=== PATIENT | male | born 1940 | race Caucasian/White ===

== ENCOUNTER → 2017-08-27 | Outpatient (CLI) | payer OTHER ==
[~2017-08-27] MED LIST: ASPIR-LOW81 MG PO; CEPHALEXIN500 M1 PO; FIBER TABLETS1 TAB PO; FLUOXETINE20 MG PO; HYDROCODONE BIT1 T11 PO; LISINOPRIL2.5 MG PO; Metformin Hydr500 MG PO; NATURAL FISH1200 MG PO; PRAVACHOL40 MG PO; PROZAC20 MG PO; TENORMIN25 M1 PO; TENORMIN50 MG PO; TERAZOSIN5 MG PO
== END ==
LOC: RAD 14:17
DX: M54.41 Lumbago with sciatica, right side (principal)

== ENCOUNTER → 2018-02-01 | Outpatient (CLI) | payer OTHER ==
[2018-02-01 14:07] LABS: BILIRUBIN NEGATIVE (NEGATIVE); BLOOD 3+ (NEGATIVE); CLARITY CLEAR (CLEAR); COLOR YELLOW (YELLOW); GLUCOSE NEGATIVE (NEGATIVE); KETONE NEGATIVE (NEGATIVE); LEUKO ESTERASE TRACE (NEGATIVE); NITRITE NEGATIVE (NEGATIVE); SPECIFIC GRAVITY <= 1.005 (1.005-1.030); UROBILINOGEN 0.2 E.U./dl (0.2-1.0)
[2018-02-01 14:17] LABS: BACTERIA TRACE
== END | disposition home or self-care (01) ==
LOC: LAB 13:47
PROVIDERS: Internal Medicine
DX: K80.20 Calculus of gallbladder without cholecystitis without obstruction (principal); N17.9 Acute kidney failure, unspecified

== ENCOUNTER → 2018-02-12 | Outpatient (CLI) | payer OTHER | END | disposition home or self-care (01) | LOC: US 07:20 | DX: K76.0 Fatty (change of) liver, not elsewhere classified (principal); K80.10 Calculus of gallbladder with chronic cholecystitis without obstruction ==

== ENCOUNTER → 2018-06-29 | Outpatient (CLI) | payer OTHER | END | disposition home or self-care (01) | LOC: RESCLI 04:21 | DX: E78.2 Mixed hyperlipidemia (principal); E11.9 Type 2 diabetes mellitus without complications; I10 Essential (primary) hypertension; G47.33 Obstructive sleep apnea (adult) (pediatric); F33.41 Major depressive disorder, recurrent, in partial remission; M54.41 Lumbago with sciatica, right side; G89.29 Other chronic pain; N40.0 Benign prostatic hyperplasia without lower urinary tract symptoms; M1A.0610 Idiopathic chronic gout, right knee, without tophus (tophi); E55.9 Vitamin D deficiency, unspecified; Z79.82 Long term (current) use of aspirin; Z79.899 Other long term (current) drug therapy; Z87.891 Personal history of nicotine dependence; Z88.8 Allergy status to other drugs, medicaments and biological substances ==

== ENCOUNTER → 2018-08-17 | Outpatient (CLI) | payer OTHER | END | disposition home or self-care (01) | LOC: RESCLI 11:44 | DX: E11.9 Type 2 diabetes mellitus without complications (principal); E78.2 Mixed hyperlipidemia; I10 Essential (primary) hypertension; E55.9 Vitamin D deficiency, unspecified; M1A.0610 Idiopathic chronic gout, right knee, without tophus (tophi); F33.41 Major depressive disorder, recurrent, in partial remission; N40.0 Benign prostatic hyperplasia without lower urinary tract symptoms; E66.9 Obesity, unspecified; K59.00 Constipation, unspecified; Z79.899 Other long term (current) drug therapy; Z79.82 Long term (current) use of aspirin; Z88.8 Allergy status to other drugs, medicaments and biological substances ==

== ENCOUNTER → 2018-10-13 | Outpatient (CLI) | payer OTHER | END | disposition home or self-care (01) | LOC: RESCLI 01:42 | DX: I10 Essential (primary) hypertension (principal); E11.9 Type 2 diabetes mellitus without complications; E78.2 Mixed hyperlipidemia; M1A.0610 Idiopathic chronic gout, right knee, without tophus (tophi); G47.33 Obstructive sleep apnea (adult) (pediatric); F33.41 Major depressive disorder, recurrent, in partial remission; M54.41 Lumbago with sciatica, right side; G89.29 Other chronic pain; M54.42 Lumbago with sciatica, left side; K80.20 Calculus of gallbladder without cholecystitis without obstruction; N40.0 Benign prostatic hyperplasia without lower urinary tract symptoms; E55.9 Vitamin D deficiency, unspecified; E66.9 Obesity, unspecified; K59.00 Constipation, unspecified; F41.9 Anxiety disorder, unspecified; K21.0 Gastro-esophageal reflux disease with esophagitis; M10.9 Gout, unspecified; Z79.82 Long term (current) use of aspirin; Z79.899 Other long term (current) drug therapy; Z88.8 Allergy status to other drugs, medicaments and biological substances ==

== ENCOUNTER → 2018-12-31 | Outpatient (CLI) | payer OTHER ==
[2018-12-31 15:07] LABS: BILIRUBIN NEGATIVE (NEGATIVE); BLOOD NEGATIVE (NEGATIVE); CLARITY CLEAR (CLEAR); COLOR YELLOW (YELLOW); GLUCOSE NEGATIVE (NEGATIVE); KETONE NEGATIVE (NEGATIVE); LEUKO ESTERASE NEGATIVE (NEGATIVE); NITRITE NEGATIVE (NEGATIVE); PH 7.5 (5.0-9.0); UROBILINOGEN 0.2 E.U./dl (0.2-1.0)
[2018-12-31 15:15] LABS: WBC 0-2 wbc/hpf (0-5)
[2018-12-31 15:19] LABS: BASO % 0.5 % (0.0-1.0); EOS # 0.1 10*3/uL (0.0-0.4); EOS % 2.5 % (1.0-4.0); HEMATOCRIT 43.8 % (42.0-52.0); HEMOGLOBIN 14.5 g/dl (14.0-18.0); LYMPH # 1.2 10*3/uL (1.3-4.4); LYMPH % 28.7 % (27.0-41.0); MEAN CELL VOLUME 90.3 fl (80.0-94.0); MEAN CORPUSCULAR HGB 29.9 pg (27.0-31.0); MEAN CORPUSCULAR HGB CONC 33.1 g/dl (33.0-37.0); MEAN PLATELET VOLUME 10.1 fl (9.6-12.3); MONO # 0.5 10*3/uL (0.1-1.0); MONO % 12.1 % (3.0-9.0); NEUT # 2.3 10*3/uL (2.3-7.9); NEUT % 55.7 % (47.0-73.0); PLATELET COUNT AUTOMATED 165 10*3/uL (130-400); RED BLOOD COUNT 4.85 10*6/uL (4.50-5.90); RED CELL DISTRI WIDTH 13.2 % (0-14.5)
[2018-12-31 15:23] LABS: CREATININE 1.86 mg/dL (0.70-1.30); POTASSIUM 4.8 mmol/L (3.5-5.1)
== END | disposition home or self-care (01) ==
LOC: RESCLI 01:22
PROVIDERS: Internal Medicine
DX: E11.9 Type 2 diabetes mellitus without complications (principal); I10 Essential (primary) hypertension; E78.2 Mixed hyperlipidemia; F33.41 Major depressive disorder, recurrent, in partial remission; N40.0 Benign prostatic hyperplasia without lower urinary tract symptoms; E55.9 Vitamin D deficiency, unspecified; K59.00 Constipation, unspecified; M10.9 Gout, unspecified; K21.0 Gastro-esophageal reflux disease with esophagitis; F41.9 Anxiety disorder, unspecified; Z79.899 Other long term (current) drug therapy; Z88.8 Allergy status to other drugs, medicaments and biological substances

== ENCOUNTER → 2019-04-19 | Outpatient (CLI) | payer OTHER | END | disposition home or self-care (01) | LOC: RESCLI 01:54 | DX: J98.8 Other specified respiratory disorders (principal); E66.9 Obesity, unspecified; I10 Essential (primary) hypertension; F41.9 Anxiety disorder, unspecified; E11.9 Type 2 diabetes mellitus without complications; E78.2 Mixed hyperlipidemia; F33.41 Major depressive disorder, recurrent, in partial remission; N40.0 Benign prostatic hyperplasia without lower urinary tract symptoms; E55.9 Vitamin D deficiency, unspecified; K59.00 Constipation, unspecified; M10.9 Gout, unspecified; Z79.899 Other long term (current) drug therapy ==

== ENCOUNTER → 2019-04-26 | Outpatient (CLI) | payer OTHER | END | disposition home or self-care (01) | LOC: RESCLI 01:48 | DX: I10 Essential (primary) hypertension (principal); F41.9 Anxiety disorder, unspecified; E11.9 Type 2 diabetes mellitus without complications; E78.2 Mixed hyperlipidemia; F33.41 Major depressive disorder, recurrent, in partial remission; N40.0 Benign prostatic hyperplasia without lower urinary tract symptoms; E55.9 Vitamin D deficiency, unspecified; K59.00 Constipation, unspecified; M10.9 Gout, unspecified; R05 Cough; Z79.899 Other long term (current) drug therapy; Z88.8 Allergy status to other drugs, medicaments and biological substances ==

== ENCOUNTER → 2019-05-12 | Outpatient (CLI) | payer OTHER ==
[2019-05-12 14:12] LABS: BASO % 0.2 % (0.0-1.0); EOS # 0.1 10*3/uL (0.0-0.4); EOS % 2.4 % (1.0-4.0); HEMATOCRIT 45.5 % (42.0-52.0); HEMOGLOBIN 14.8 g/dl (14.0-18.0); LYMPH % 20.6 % (27.0-41.0); MEAN CELL VOLUME 90.3 fl (80.0-94.0); MEAN CORPUSCULAR HGB 29.4 pg (27.0-31.0); MEAN CORPUSCULAR HGB CONC 32.5 g/dl (33.0-37.0); MEAN PLATELET VOLUME 10.4 fl (9.6-12.3); MONO # 0.5 10*3/uL (0.1-1.0); MONO % 10.2 % (3.0-9.0); NEUT # 3.3 10*3/uL (2.3-7.9); NEUT % 66.2 % (47.0-73.0); PLATELET COUNT AUTOMATED 164 10*3/uL (130-400); RED BLOOD COUNT 5.04 10*6/uL (4.50-5.90); RED CELL DISTRI WIDTH 12.8 % (0-14.5)
[2019-05-12 14:25] LABS: CREATININE 1.72 mg/dL (0.70-1.30)
== END | disposition home or self-care (01) ==
LOC: LAB 13:07
PROVIDERS: Internal Medicine
DX: E11.9 Type 2 diabetes mellitus without complications (principal); R05 Cough

== ENCOUNTER → 2019-05-20 | Outpatient (CLI) | payer OTHER ==
[2019-05-21 09:08] LABS: CREATININE,URINE 118.2 mg/dL (Not Estab.); MICROALBUMIN/CRT RATIO 5.2 (0.0-30.0)
[2019-05-23 11:08] LABS: MICROALBUMIN EXCRETION RATE 6.1 ug/min (0.0-20.0)
== END | disposition home or self-care (01) ==
LOC: LAB 14:19
PROVIDERS: Internal Medicine
DX: E11.9 Type 2 diabetes mellitus without complications (principal); R05 Cough

== ENCOUNTER → 2019-08-09 | Outpatient (CLI) | payer OTHER ==
[2019-08-09 15:02] LABS: CREATININE 1.99 mg/dL (0.70-1.30); POTASSIUM 5.2 mmol/L (3.5-5.1)
== END | disposition home or self-care (01) ==
LOC: RESCLI 00:48
PROVIDERS: Family Medicine
DX: B97.89 Other viral agents as the cause of diseases classified elsewhere (principal); F41.9 Anxiety disorder, unspecified; I10 Essential (primary) hypertension; E11.9 Type 2 diabetes mellitus without complications; E78.2 Mixed hyperlipidemia; F33.41 Major depressive disorder, recurrent, in partial remission; N40.0 Benign prostatic hyperplasia without lower urinary tract symptoms; E55.9 Vitamin D deficiency, unspecified; K59.00 Constipation, unspecified; M10.9 Gout, unspecified; Z79.899 Other long term (current) drug therapy

== ENCOUNTER → 2019-09-15 | Outpatient (CLI) | payer OTHER ==
[2019-09-15 16:05] LABS: BASO % 0.5 % (0.0-1.0); EOS # 0.1 10*3/uL (0.0-0.4); EOS % 1.8 % (1.0-4.0); HEMATOCRIT 47.4 % (42.0-52.0); HEMOGLOBIN 15.3 g/dl (14.0-18.0); LYMPH # 1.1 10*3/uL (1.3-4.4); LYMPH % 19.2 % (27.0-41.0); MEAN CELL VOLUME 91.7 fl (80.0-94.0); MEAN CORPUSCULAR HGB 29.6 pg (27.0-31.0); MEAN CORPUSCULAR HGB CONC 32.3 g/dl (33.0-37.0); MEAN PLATELET VOLUME 10.1 fl (9.6-12.3); MONO # 0.6 10*3/uL (0.1-1.0); MONO % 10.7 % (3.0-9.0); NEUT # 3.8 10*3/uL (2.3-7.9); NEUT % 67.6 % (47.0-73.0); PLATELET COUNT AUTOMATED 186 10*3/uL (130-400); RED BLOOD COUNT 5.17 10*6/uL (4.50-5.90); RED CELL DISTRI WIDTH 13.2 % (0-14.5); WHITE BLOOD COUNT 5.6 10*3/uL (4.8-10.8)
[2019-09-15 16:16] LABS: CREATININE 1.68 mg/dL (0.70-1.30); POTASSIUM 4.4 mmol/L (3.5-5.1)
== END | disposition home or self-care (01) ==
LOC: RESCLI 00:36
PROVIDERS: Internal Medicine
DX: B97.89 Other viral agents as the cause of diseases classified elsewhere (principal); I10 Essential (primary) hypertension; E11.9 Type 2 diabetes mellitus without complications; E78.2 Mixed hyperlipidemia; F33.41 Major depressive disorder, recurrent, in partial remission; N40.0 Benign prostatic hyperplasia without lower urinary tract symptoms; E55.9 Vitamin D deficiency, unspecified; K59.00 Constipation, unspecified; M10.9 Gout, unspecified; Z79.899 Other long term (current) drug therapy

== ENCOUNTER → 2020-03-30 | Outpatient (CLI) | payer OTHER | END | disposition home or self-care (01) | LOC: RESCLI 00:47 | PROVIDERS: ATTEND Internal Medicine | DX: E11.22 Type 2 diabetes mellitus with diabetic chronic kidney disease (principal); I12.9 Hypertensive chronic kidney disease with stage 1 through stage 4 chronic kidney disease, or unspecified chronic kidney disease; N18.3 Chronic kidney disease, stage 3 (moderate); F33.41 Major depressive disorder, recurrent, in partial remission; E55.9 Vitamin D deficiency, unspecified; E78.2 Mixed hyperlipidemia; K59.00 Constipation, unspecified; M10.9 Gout, unspecified; N40.0 Benign prostatic hyperplasia without lower urinary tract symptoms; Z79.82 Long term (current) use of aspirin; Z79.899 Other long term (current) drug therapy ==

== ENCOUNTER → 2020-04-17 | Outpatient (CLI) | payer OTHER ==
[2020-04-17 10:55] LABS: BASO % 0.5 % (0.0-1.0); EOS # 0.1 10*3/uL (0.0-0.4); EOS % 2.4 % (1.0-4.0); HEMATOCRIT 44.7 % (42.0-52.0); LYMPH % 16.9 % (27.0-41.0); MEAN CORPUSCULAR HGB 29.3 pg (27.0-31.0); MEAN CORPUSCULAR HGB CONC 32.9 g/dl (33.0-37.0); MEAN PLATELET VOLUME 9.3 fl (9.6-12.3); MONO # 0.7 10*3/uL (0.1-1.0); MONO % 11.3 % (3.0-9.0); NEUT # 4.1 10*3/uL (2.3-7.9); NEUT % 68.4 % (47.0-73.0); PLATELET COUNT AUTOMATED 190 10*3/uL (130-400); RED BLOOD COUNT 5.02 10*6/uL (4.50-5.90); RED CELL DISTRI WIDTH 12.5 % (0-14.5); WHITE BLOOD COUNT 5.9 10*3/uL (4.8-10.8)
[2020-04-17 11:24] LABS: ALBUMIN 3.8 gm/dl (3.1-4.5); CREATININE 1.67 mg/dL (0.70-1.30); POTASSIUM 4.5 mmol/L (3.5-5.1); TOTAL PROTEIN 7.5 gm/dL (6.4-8.2)
[2020-04-18 09:07] LABS: CREATININE,URINE 125.1 mg/dL (Not Estab.)
== END | disposition home or self-care (01) ==
LOC: LAB 10:23
PROVIDERS: Internal Medicine; ATTEND Family Medicine
DX: E11.9 Type 2 diabetes mellitus without complications (principal); I10 Essential (primary) hypertension; N18.3 Chronic kidney disease, stage 3 (moderate); E78.2 Mixed hyperlipidemia

== ENCOUNTER → 2021-01-04 | Outpatient (CLI) | payer OTHER | END | disposition home or self-care (01) | LOC: RESCLI 01:04 | PROVIDERS: ATTEND Internal Medicine | DX: E11.22 Type 2 diabetes mellitus with diabetic chronic kidney disease (principal); I12.9 Hypertensive chronic kidney disease with stage 1 through stage 4 chronic kidney disease, or unspecified chronic kidney disease; N18.30 Chronic kidney disease, stage 3 unspecified; E78.2 Mixed hyperlipidemia; E55.9 Vitamin D deficiency, unspecified; M10.9 Gout, unspecified; N40.0 Benign prostatic hyperplasia without lower urinary tract symptoms; F41.9 Anxiety disorder, unspecified; G47.33 Obstructive sleep apnea (adult) (pediatric); K21.9 Gastro-esophageal reflux disease without esophagitis; Z79.82 Long term (current) use of aspirin; Z79.899 Other long term (current) drug therapy ==

== ENCOUNTER → 2021-01-10 | Outpatient (CLI) | payer OTHER ==
[2021-01-10 10:22] LABS: BASO % 0.4 % (0.0-1.0); EOS # 0.2 10*3/uL (0.0-0.4); EOS % 3.3 % (1.0-4.0); HEMATOCRIT 45.2 % (42.0-52.0); LYMPH # 1.1 10*3/uL (1.3-4.4); LYMPH % 20.9 % (27.0-41.0); MEAN CELL VOLUME 92.2 fl (80.0-94.0); MEAN CORPUSCULAR HGB CONC 32.5 g/dl (33.0-37.0); MEAN PLATELET VOLUME 9.7 fl (9.6-12.3); MONO # 0.6 10*3/uL (0.1-1.0); MONO % 10.5 % (3.0-9.0); NEUT # 3.5 10*3/uL (2.3-7.9); NEUT % 64.5 % (47.0-73.0); PLATELET COUNT AUTOMATED 180 10*3/uL (130-400); RED CELL DISTRI WIDTH 12.8 % (0-14.5); WHITE BLOOD COUNT 5.4 10*3/uL (4.8-10.8)
[2021-01-10 10:45] LABS: ALBUMIN 3.6 gm/dl (3.1-4.5); CREATININE 1.79 mg/dL (0.70-1.30); POTASSIUM 4.2 mmol/L (3.5-5.1); TOTAL PROTEIN 7.3 gm/dL (6.4-8.2)
[2021-01-10 10:50] LABS: FREE T4 0.92 ng/dl (0.76-1.46); THYROID STIM HORMONE (HS) 2.48 uIU/ml (0.358-4.75)
[2021-01-11 10:07] LABS: CREATININE,URINE 240.3 mg/dL (Not Estab.)
== END | disposition home or self-care (01) ==
LOC: LAB 09:55
PROVIDERS: Internal Medicine; ATTEND Internal Medicine
DX: E11.9 Type 2 diabetes mellitus without complications (principal); E78.2 Mixed hyperlipidemia; E55.9 Vitamin D deficiency, unspecified

== ENCOUNTER → 2021-02-01 | Outpatient (CLI) | payer OTHER | END | disposition home or self-care (01) | LOC: US 10:27 | PROVIDERS: ATTEND Internal Medicine Nephrology | DX: N18.32 Chronic kidney disease, stage 3b (principal); N28.1 Cyst of kidney, acquired; N28.89 Other specified disorders of kidney and ureter ==

== ENCOUNTER → 2021-05-22 | Outpatient (CLI) | payer OTHER | END | disposition home or self-care (01) | LOC: RESCLI 00:49 | PROVIDERS: ATTEND Internal Medicine Nephrology | DX: Z23 Encounter for immunization (principal); I12.9 Hypertensive chronic kidney disease with stage 1 through stage 4 chronic kidney disease, or unspecified chronic kidney disease; E11.22 Type 2 diabetes mellitus with diabetic chronic kidney disease; N18.30 Chronic kidney disease, stage 3 unspecified; E78.2 Mixed hyperlipidemia; M10.9 Gout, unspecified; E55.9 Vitamin D deficiency, unspecified; N40.0 Benign prostatic hyperplasia without lower urinary tract symptoms; J30.2 Other seasonal allergic rhinitis; F32.5 Major depressive disorder, single episode, in full remission; Z78.9 Other specified health status; Z79.82 Long term (current) use of aspirin; Z79.899 Other long term (current) drug therapy ==

== ENCOUNTER → 2021-06-12 | Outpatient (CLI) | payer OTHER | END | disposition home or self-care (01) | LOC: RESCLI 00:47 | PROVIDERS: ATTEND Internal Medicine Nephrology | DX: I12.9 Hypertensive chronic kidney disease with stage 1 through stage 4 chronic kidney disease, or unspecified chronic kidney disease (principal); N18.30 Chronic kidney disease, stage 3 unspecified; E78.2 Mixed hyperlipidemia; Z23 Encounter for immunization; M10.9 Gout, unspecified; N40.0 Benign prostatic hyperplasia without lower urinary tract symptoms; E55.9 Vitamin D deficiency, unspecified; J30.2 Other seasonal allergic rhinitis; F32.5 Major depressive disorder, single episode, in full remission; Z78.9 Other specified health status; Z79.82 Long term (current) use of aspirin; Z79.899 Other long term (current) drug therapy ==

== ENCOUNTER → 2021-08-07 | Outpatient (CLI) | payer OTHER | END | disposition home or self-care (01) | LOC: RESCLI 00:32 | PROVIDERS: ATTEND Internal Medicine | DX: I12.9 Hypertensive chronic kidney disease with stage 1 through stage 4 chronic kidney disease, or unspecified chronic kidney disease (principal); N18.30 Chronic kidney disease, stage 3 unspecified; E78.2 Mixed hyperlipidemia; M10.9 Gout, unspecified; E55.9 Vitamin D deficiency, unspecified; N40.0 Benign prostatic hyperplasia without lower urinary tract symptoms; J30.2 Other seasonal allergic rhinitis; K21.9 Gastro-esophageal reflux disease without esophagitis; F32.5 Major depressive disorder, single episode, in full remission; Z78.9 Other specified health status; Z79.82 Long term (current) use of aspirin; Z79.899 Other long term (current) drug therapy; Z98.890 Other specified postprocedural states ==

== ENCOUNTER → 2021-08-28 | Outpatient (CLI) | payer OTHER ==
[2021-08-28 10:47] LABS: BASO % 0.6 % (0.0-1.0); EOS # 0.1 10*3/uL (0.0-0.4); EOS % 1.9 % (1.0-4.0); HEMATOCRIT 44.2 % (42.0-52.0); LYMPH # 1.2 10*3/uL (1.3-4.4); LYMPH % 17.2 % (27.0-41.0); MEAN CELL VOLUME 89.7 fl (80.0-94.0); MEAN CORPUSCULAR HGB 29.6 pg (27.0-31.0); MEAN PLATELET VOLUME 9.8 fl (9.6-12.3); MONO # 0.8 10*3/uL (0.1-1.0); MONO % 11.3 % (3.0-9.0); NEUT # 4.6 10*3/uL (2.3-7.9); NEUT % 68.7 % (47.0-73.0); PLATELET COUNT AUTOMATED 193 10*3/uL (130-400); RED BLOOD COUNT 4.93 10*6/uL (4.50-5.90); RED CELL DISTRI WIDTH 12.8 % (0-14.5); WHITE BLOOD COUNT 6.7 10*3/uL (4.8-10.8)
[2021-08-28 11:06] LABS: ALBUMIN 3.9 gm/dl (3.1-4.5); CREATININE 1.9 mg/dL (0.70-1.30); POTASSIUM 4.4 mmol/L (3.5-5.1)
[2021-08-28 11:08] LABS: TOTAL PROTEIN 7.5 gm/dL (6.4-8.2)
== END | disposition home or self-care (01) ==
LOC: RESCLI 06:46
PROVIDERS: Internal Medicine; ATTEND Internal Medicine
DX: K11.20 Sialoadenitis, unspecified (principal); I10 Essential (primary) hypertension; E11.9 Type 2 diabetes mellitus without complications; E55.9 Vitamin D deficiency, unspecified; E78.2 Mixed hyperlipidemia; M10.9 Gout, unspecified; N40.0 Benign prostatic hyperplasia without lower urinary tract symptoms; J30.2 Other seasonal allergic rhinitis; F32.5 Major depressive disorder, single episode, in full remission; Z79.899 Other long term (current) drug therapy

== ENCOUNTER 2021-10-24 10:34 | Emergency (ER) | payer OTHER ==
[~2021-10-24] VITALS: Ht 170.1 cm; Wt 88.5 kg
[2021-10-24 10:57] VITALS: BP 116/61
[2021-10-24 11:35] LABS: BASO % 0.3 % (0.0-1.0); EOS % 0.4 % (1.0-4.0); HEMATOCRIT 44.3 % (42.0-52.0); LYMPH # 0.5 10*3/uL (1.3-4.4); LYMPH % 5.9 % (27.0-41.0); MEAN CELL VOLUME 88.4 fl (80.0-94.0); MEAN CORPUSCULAR HGB 29.7 pg (27.0-31.0); MEAN CORPUSCULAR HGB CONC 33.6 g/dl (33.0-37.0); MEAN PLATELET VOLUME 9.8 fl (9.6-12.3); MONO # 0.8 10*3/uL (0.1-1.0); MONO % 9.4 % (3.0-9.0); NEUT # 6.6 10*3/uL (2.3-7.9); NEUT % 83.5 % (47.0-73.0); PLATELET COUNT AUTOMATED 190 10*3/uL (130-400); RED BLOOD COUNT 5.01 10*6/uL (4.50-5.90); RED CELL DISTRI WIDTH 13.1 % (0-14.5)
[2021-10-24 11:53] LABS: CREATININE 2.02 mg/dL (0.70-1.30); POTASSIUM 4.5 mmol/L (3.5-5.1); TOTAL PROTEIN 7.5 gm/dL (6.4-8.2)
[2021-10-24] MEDS ORDERED: VIBRA-TAB100 MG PO (13:33)
== END 2021-10-24 13:37 | disposition home or self-care (01) ==
LOC: ED 10:34
PROVIDERS: Emergency Medicine
DX: R11.2 Nausea with vomiting, unspecified (principal); Z20.822 Contact with and (suspected) exposure to COVID-19; R50.9 Fever, unspecified; Z79.899 Other long term (current) drug therapy; Z98.890 Other specified postprocedural states

== ENCOUNTER → 2021-12-11 | Outpatient (CLI) | payer OTHER ==
[~2021-12-11] MED LIST changes: +VIBRA-TAB100 MG PO
[2021-12-11 16:44] LABS: CREATININE 1.73 mg/dL (0.70-1.30); POTASSIUM 4.7 mmol/L (3.5-5.1)
== END | disposition home or self-care (01) ==
LOC: RESCLI 00:36
PROVIDERS: Hospitalist; ATTEND Internal Medicine Nephrology
DX: N18.30 Chronic kidney disease, stage 3 unspecified (principal)

== ENCOUNTER → 2022-01-01 | Outpatient (CLI) | payer OTHER ==
[~2022-01-01] MED LIST changes: +ALLOPURINOL100 MG PO; +B12 ACTIVE1000 MCG PO; +CENTURY ULTIMA1 EAC3 PO; +CYCLOBENZAPRINE10 MG PO; +FENOFIBRATE145 M1 PO; +FISH OIL 1,0001 EAC5 PO; +LIPITOR10 MG PO; +LOSARTAN POTASS50 M1 PO; +PROZAC40 M1 PO
== END | disposition home or self-care (01) ==
LOC: RESCLI 14:25
PROVIDERS: ATTEND Internal Medicine Nephrology
DX: M54.89 Other dorsalgia (principal); B35.0 Tinea barbae and tinea capitis; I10 Essential (primary) hypertension; E78.2 Mixed hyperlipidemia; M50.30 Other cervical disc degeneration, unspecified cervical region; G47.33 Obstructive sleep apnea (adult) (pediatric); M1A.9XX0 Chronic gout, unspecified, without tophus (tophi); E55.9 Vitamin D deficiency, unspecified; F41.9 Anxiety disorder, unspecified; J30.2 Other seasonal allergic rhinitis; Z79.899 Other long term (current) drug therapy; Z79.82 Long term (current) use of aspirin

== ENCOUNTER → 2022-01-10 | Outpatient (CLI) | payer OTHER | END | disposition home or self-care (01) | LOC: CARD 01:36 | PROVIDERS: ATTEND Student in an Organized Health Care Education/Training Program | DX: R06.00 Dyspnea, unspecified (principal); R06.02 Shortness of breath ==

== ENCOUNTER → 2022-01-16 | Outpatient (CLI) | payer OTHER | END | disposition home or self-care (01) | LOC: CARD 08:43 | PROVIDERS: ATTEND Student in an Organized Health Care Education/Training Program | DX: I08.2 Rheumatic disorders of both aortic and tricuspid valves (principal) ==

== ENCOUNTER → 2022-01-22 | Outpatient (CLI) | payer OTHER | END | disposition home or self-care (01) | LOC: RESCLI 02:29 | PROVIDERS: ATTEND Internal Medicine Nephrology | DX: I13.0 Hypertensive heart and chronic kidney disease with heart failure and stage 1 through stage 4 chronic kidney disease, or unspecified chronic kidney disease (principal); N18.30 Chronic kidney disease, stage 3 unspecified; I50.32 Chronic diastolic (congestive) heart failure; J30.2 Other seasonal allergic rhinitis; B35.0 Tinea barbae and tinea capitis; E78.2 Mixed hyperlipidemia; F41.9 Anxiety disorder, unspecified; G47.33 Obstructive sleep apnea (adult) (pediatric); E11.22 Type 2 diabetes mellitus with diabetic chronic kidney disease; K57.90 Diverticulosis of intestine, part unspecified, without perforation or abscess without bleeding; M1A.9XX0 Chronic gout, unspecified, without tophus (tophi); E55.9 Vitamin D deficiency, unspecified; Z79.899 Other long term (current) drug therapy; Z79.82 Long term (current) use of aspirin ==

== ENCOUNTER → 2022-02-12 | Outpatient (CLI) | payer OTHER | END | disposition home or self-care (01) | LOC: RESCLI 03:00 | PROVIDERS: ATTEND Internal Medicine | DX: M25.511 Pain in right shoulder (principal); I12.9 Hypertensive chronic kidney disease with stage 1 through stage 4 chronic kidney disease, or unspecified chronic kidney disease; E78.2 Mixed hyperlipidemia; M1A.9XX0 Chronic gout, unspecified, without tophus (tophi); N18.30 Chronic kidney disease, stage 3 unspecified; E11.22 Type 2 diabetes mellitus with diabetic chronic kidney disease; E55.9 Vitamin D deficiency, unspecified; N40.0 Benign prostatic hyperplasia without lower urinary tract symptoms; J30.2 Other seasonal allergic rhinitis; F41.9 Anxiety disorder, unspecified; B35.4 Tinea corporis; K21.9 Gastro-esophageal reflux disease without esophagitis; Z79.899 Other long term (current) drug therapy; Z79.82 Long term (current) use of aspirin ==

== ENCOUNTER → 2022-03-19 | Outpatient (CLI) | payer OTHER | END | disposition home or self-care (01) | LOC: RAD 02:14 → RESCLI 02:14 | PROVIDERS: ATTEND Internal Medicine | DX: M47.816 Spondylosis without myelopathy or radiculopathy, lumbar region (principal); J30.2 Other seasonal allergic rhinitis; M1A.9XX0 Chronic gout, unspecified, without tophus (tophi); E55.9 Vitamin D deficiency, unspecified; B35.4 Tinea corporis; I10 Essential (primary) hypertension; M48.061 Spinal stenosis, lumbar region without neurogenic claudication; E78.2 Mixed hyperlipidemia; M25.78 Osteophyte, vertebrae; I70.0 Atherosclerosis of aorta; F41.9 Anxiety disorder, unspecified; N40.0 Benign prostatic hyperplasia without lower urinary tract symptoms; Z79.899 Other long term (current) drug therapy; Z79.82 Long term (current) use of aspirin ==

== ENCOUNTER → 2022-03-24 | Outpatient (CLI) | payer OTHER | END | disposition home or self-care (01) | LOC: RESCLI 14:54 | PROVIDERS: ATTEND Internal Medicine | DX: M1A.9XX0 Chronic gout, unspecified, without tophus (tophi) (principal); N40.0 Benign prostatic hyperplasia without lower urinary tract symptoms; E55.9 Vitamin D deficiency, unspecified; I10 Essential (primary) hypertension; E78.2 Mixed hyperlipidemia; J30.2 Other seasonal allergic rhinitis; M54.50 Low back pain, unspecified; Z79.899 Other long term (current) drug therapy; Z79.82 Long term (current) use of aspirin ==

== ENCOUNTER 2022-04-13 14:43 | Emergency (ER) | payer OTHER ==
[~2022-04-13] VITALS: Ht 170.1 cm; Wt 88.5 kg
[2022-04-13 14:45] VITALS: BP 143/84
== END 2022-04-13 15:38 | disposition home or self-care (01) ==
LOC: ED 14:43
DX: S81.811A Laceration without foreign body, right lower leg, initial encounter (principal); Z79.899 Other long term (current) drug therapy; Z79.82 Long term (current) use of aspirin; X99.8XXA Assault by other sharp object, initial encounter; Y93.89 Activity, other specified; Y92.89 Other specified places as the place of occurrence of the external cause; Y99.8 Other external cause status

== ENCOUNTER → 2022-04-24 | Outpatient (CLI) | payer OTHER | END | disposition home or self-care (01) | LOC: RESCLI 11:13 | PROVIDERS: ATTEND Internal Medicine | DX: Z48.89 Encounter for other specified surgical aftercare (principal); Z23 Encounter for immunization; E11.22 Type 2 diabetes mellitus with diabetic chronic kidney disease; N18.30 Chronic kidney disease, stage 3 unspecified; E55.9 Vitamin D deficiency, unspecified; F41.9 Anxiety disorder, unspecified; G47.33 Obstructive sleep apnea (adult) (pediatric); I12.9 Hypertensive chronic kidney disease with stage 1 through stage 4 chronic kidney disease, or unspecified chronic kidney disease; Z98.890 Other specified postprocedural states; Z79.899 Other long term (current) drug therapy; Z79.82 Long term (current) use of aspirin ==

== ENCOUNTER → 2022-07-07 | Outpatient (CLI) | payer OTHER | END | disposition home or self-care (01) | LOC: RESCLI 01:54 | PROVIDERS: ATTEND Internal Medicine | DX: I12.9 Hypertensive chronic kidney disease with stage 1 through stage 4 chronic kidney disease, or unspecified chronic kidney disease (principal); E11.22 Type 2 diabetes mellitus with diabetic chronic kidney disease; N18.30 Chronic kidney disease, stage 3 unspecified; E78.2 Mixed hyperlipidemia; E55.9 Vitamin D deficiency, unspecified; K21.9 Gastro-esophageal reflux disease without esophagitis; G47.33 Obstructive sleep apnea (adult) (pediatric); Z79.82 Long term (current) use of aspirin; Z79.899 Other long term (current) drug therapy ==

== ENCOUNTER → 2022-07-14 | Outpatient (CLI) | payer OTHER ==
[2022-07-14 09:24] LABS: BASO % 0.5 % (0.0-1.0); EOS # 0.2 10*3/uL (0.0-0.4); EOS % 4.2 % (1.0-4.0); HEMATOCRIT 44.6 % (42.0-52.0); LYMPH # 0.9 10*3/uL (1.3-4.4); LYMPH % 16.9 % (27.0-41.0); MEAN CORPUSCULAR HGB 30.4 pg (27.0-31.0); MEAN CORPUSCULAR HGB CONC 34.5 g/dl (33.0-37.0); MEAN PLATELET VOLUME 9.7 fl (9.6-12.3); MONO # 0.7 10*3/uL (0.1-1.0); MONO % 12.3 % (3.0-9.0); NEUT # 3.6 10*3/uL (2.3-7.9); NEUT % 65.7 % (47.0-73.0); PLATELET COUNT AUTOMATED 174 10*3/uL (130-400); RED BLOOD COUNT 5.07 10*6/uL (4.50-5.90); RED CELL DISTRI WIDTH 12.9 % (0-14.5); WHITE BLOOD COUNT 5.5 10*3/uL (4.8-10.8)
[2022-07-14 09:58] LABS: CREATININE 1.55 mg/dL (0.70-1.30); POTASSIUM 4.1 mmol/L (3.4-5.1); TOTAL PROTEIN 6.8 gm/dL (6.0-8.0); URIC ACID 7.4 mg/dL (3.1-9.2)
== END | disposition home or self-care (01) ==
LOC: LAB 08:48
PROVIDERS: ATTEND Student in an Organized Health Care Education/Training Program
DX: E11.9 Type 2 diabetes mellitus without complications (principal); E78.2 Mixed hyperlipidemia; M1A.9XX0 Chronic gout, unspecified, without tophus (tophi)

== ENCOUNTER 2022-09-30 00:36 | Emergency (ER) | payer MEDICARE ==
[~2022-09-30] VITALS: Ht 172.7 cm; Wt 102.1 kg
[2022-09-30 00:37] VITALS: BP 141/72
== END 2022-09-30 02:11 | disposition home or self-care (01) ==
LOC: ED 00:36
DX: S76.011A Strain of muscle, fascia and tendon of right hip, initial encounter (principal); S09.90XA Unspecified injury of head, initial encounter; Z98.890 Other specified postprocedural states; W01.198A Fall on same level from slipping, tripping and stumbling with subsequent striking against other object, initial encounter; Y93.89 Activity, other specified; Y92.009 Unspecified place in unspecified non-institutional (private) residence as the place of occurrence of the external cause; Y99.8 Other external cause status

== ENCOUNTER → 2023-03-17 | Outpatient (CLI) | payer MEDICARE ==
[2023-03-17 11:55] LABS: BASO % 0.4 % (0.0-1.0); EOS # 0.2 10*3/uL (0.0-0.4); EOS % 3.2 % (1.0-4.0); HEMATOCRIT 44.6 % (42.0-52.0); LYMPH # 1.1 10*3/uL (1.3-4.4); LYMPH % 21.1 % (27.0-41.0); MEAN CELL VOLUME 88.1 fl (80.0-94.0); MEAN CORPUSCULAR HGB 29.4 pg (27.0-31.0); MEAN CORPUSCULAR HGB CONC 33.4 g/dl (33.0-37.0); MEAN PLATELET VOLUME 9.4 fl (9.6-12.3); MONO # 0.7 10*3/uL (0.1-1.0); MONO % 12.4 % (3.0-9.0); NEUT # 3.3 10*3/uL (2.3-7.9); NEUT % 62.5 % (47.0-73.0); PLATELET COUNT AUTOMATED 193 10*3/uL (130-400); RED BLOOD COUNT 5.06 10*6/uL (4.50-5.90); RED CELL DISTRI WIDTH 13.9 % (0-14.5); WHITE BLOOD COUNT 5.3 10*3/uL (4.8-10.8)
[2023-03-17 12:17] LABS: POTASSIUM 4.2 mmol/L (3.4-5.1); TOTAL PROTEIN 7.1 gm/dL (6.0-8.0)
== END | disposition home or self-care (01) ==
LOC: RESCLI 09:16
PROVIDERS: Student in an Organized Health Care Education/Training Program; ATTEND Student in an Organized Health Care Education/Training Program
DX: R25.2 Cramp and spasm (principal); I10 Essential (primary) hypertension; E11.9 Type 2 diabetes mellitus without complications; E78.5 Hyperlipidemia, unspecified; R06.09 Other forms of dyspnea; Z79.899 Other long term (current) drug therapy

== ENCOUNTER → 2023-04-10 | Outpatient (CLI) | payer MEDICARE | END | disposition home or self-care (01) | LOC: CARD 00:08 | PROVIDERS: ATTEND Internal Medicine | DX: R06.09 Other forms of dyspnea (principal); R53.81 Other malaise; R06.02 Shortness of breath ==

== ENCOUNTER → 2023-05-19 | Outpatient (CLI) | payer MEDICARE | END | disposition home or self-care (01) | LOC: RESCLI 01:19 | PROVIDERS: ATTEND Internal Medicine | DX: M19.011 Primary osteoarthritis, right shoulder (principal); M25.511 Pain in right shoulder ==

== ENCOUNTER → 2023-11-17 | Outpatient (CLI) | payer MEDICARE ==
[2023-11-17 13:00] LABS: BASO % 0.4 % (0.0-1.0); EOS # 0.2 10*3/uL (0.0-0.4); HEMATOCRIT 47.3 % (42.0-52.0); LYMPH # 1.4 10*3/uL (1.3-4.4); LYMPH % 20.3 % (27.0-41.0); MEAN CELL VOLUME 89.8 fl (80.0-94.0); MEAN CORPUSCULAR HGB CONC 33.4 g/dl (33.0-37.0); MEAN PLATELET VOLUME 9.1 fl (9.6-12.3); MONO # 0.7 10*3/uL (0.1-1.0); MONO % 10.1 % (3.0-9.0); NEUT # 4.4 10*3/uL (2.3-7.9); NEUT % 65.8 % (47.0-73.0); PLATELET COUNT AUTOMATED 186 10*3/uL (130-400); RED BLOOD COUNT 5.27 10*6/uL (4.50-5.90); RED CELL DISTRI WIDTH 13.1 % (0-14.5); WHITE BLOOD COUNT 6.8 10*3/uL (4.8-10.8)
[2023-11-17 13:29] LABS: TOTAL PROTEIN 7.3 gm/dL (6.0-8.0); VITAMIN D, 25-HYDROXY 61.4 ng/mL (30-100)
== END | disposition home or self-care (01) ==
LOC: RESCLI 03:01
PROVIDERS: Student in an Organized Health Care Education/Training Program; ATTEND Family Medicine
DX: I10 Essential (primary) hypertension (principal); R53.83 Other fatigue; K59.00 Constipation, unspecified; J30.2 Other seasonal allergic rhinitis; G89.29 Other chronic pain; N40.0 Benign prostatic hyperplasia without lower urinary tract symptoms; E78.2 Mixed hyperlipidemia; E55.9 Vitamin D deficiency, unspecified; M1A.9XX0 Chronic gout, unspecified, without tophus (tophi); M79.10 Myalgia, unspecified site; F41.9 Anxiety disorder, unspecified; Z98.890 Other specified postprocedural states; Z79.899 Other long term (current) drug therapy

== ENCOUNTER → 2024-01-05 | Outpatient (CLI) | payer MEDICARE | END | disposition home or self-care (01) | LOC: RESCLI 00:56 | PROVIDERS: ATTEND Internal Medicine | DX: F41.9 Anxiety disorder, unspecified (principal); Z79.899 Other long term (current) drug therapy; Z88.8 Allergy status to other drugs, medicaments and biological substances; Z98.890 Other specified postprocedural states ==

== ENCOUNTER → 2024-01-22 | Outpatient (CLI) | payer MEDICARE | END | disposition home or self-care (01) | LOC: RAD 15:20 | PROVIDERS: ATTEND Internal Medicine | DX: J98.11 Atelectasis (principal); R09.89 Other specified symptoms and signs involving the circulatory and respiratory systems ==

== ENCOUNTER → 2024-04-27 | Day surgery (SDC) | payer MEDICARE ==
[~2024-04-27] VITALS: Ht 170.1 cm; Wt 86.2 kg
[~2024-04-27] MED LIST changes: +Balanced Salt Solution 500 ML OPH SCH; +Cefuroxime Sodium 5 MG in BALANCED SALT IRRIG SOLN NO.2 0.5 ML,SYRINGE, DISPOSABLE, 10 ... IO SCH; +Midazolam Hydrochloride 2 MG/2 ML VIAL IV ONE; +OFLOXACIN 0.3% 5 ML BOTTLE ONE; +OFLOXACIN 0.3% 5 ML BOTTLE OPH SCH; +PHENYLEPHRINE/KETOROLAC 4 ML in Balanced Salt Solution 500 ML OPH SCH; +POVIDONE IODINE 5% OPHTHALMIC 30 ML BOTTLE OPH ONE; +POVIDONE IODINE 5% OPHTHALMIC 30 ML BOTTLE OPH SCH; +Phenylephrine Hydrochloride 2 ML BOT OPH ONE; +Phenylephrine Hydrochloride 2 ML BOT OPH SCH; +Proparacaine Hydrochloride 15 ML BOT OPH ONE; +Proparacaine Hydrochloride 15 ML BOT OPH SCH; +SODIUM CHLORIDE 0.9% 1,000 ML IV SCH; +TROPICAMIDE 3 ML BOT OPH ONE; +TROPICAMIDE 3 ML BOT OPH SCH; +Tetracaine Hydrochloride 0.5% 4 ML BOT OPH ONE; +Tetracaine Hydrochloride 0.5% 4 ML BOT OPH SCH; +prednisoLONE acetate 1% OPHTHALMIC 5 ML BOT OPH ONE; +prednisoLONE acetate 1% OPHTHALMIC 5 ML BOT OPH SCH
[2024-04-27 09:20] VITALS: BP 159/88
[2024-04-27 11:33] VITALS: BP 145/86
[2024-04-27 11:48] VITALS: BP 140/79
[2024-04-27 12:03] VITALS: BP 161/73
== END | disposition home or self-care (01) ==
LOC: SDC 04-22 12:30
PROVIDERS: ATTEND Ophthalmology
DX: E11.36 Type 2 diabetes mellitus with diabetic cataract (principal); H25.11 Age-related nuclear cataract, right eye; I10 Essential (primary) hypertension; E78.00 Pure hypercholesterolemia, unspecified; F32.A Depression, unspecified; M10.9 Gout, unspecified; Z79.82 Long term (current) use of aspirin; Z79.899 Other long term (current) drug therapy; Z98.890 Other specified postprocedural states

== ENCOUNTER → 2024-06-01 | Day surgery (SDC) | payer MEDICARE ==
[~2024-06-01] VITALS: Ht 170 cm; Wt 86.0 kg
[2024-06-01 09:08] VITALS: BP 159/70
[2024-06-01 10:16] VITALS: BP 135/73
[2024-06-01 10:30] VITALS: BP 131/74
[2024-06-01 10:44] VITALS: BP 137/74
== END | disposition home or self-care (01) ==
LOC: SDC 05-27 11:45
PROVIDERS: ATTEND Ophthalmology
DX: E11.36 Type 2 diabetes mellitus with diabetic cataract (principal); H25.12 Age-related nuclear cataract, left eye; I10 Essential (primary) hypertension; E78.00 Pure hypercholesterolemia, unspecified; F32.A Depression, unspecified; M10.9 Gout, unspecified; Z87.891 Personal history of nicotine dependence; Z98.890 Other specified postprocedural states; Z79.82 Long term (current) use of aspirin; Z79.899 Other long term (current) drug therapy